=== PATIENT | male | born 1995 | race Caucasian/White ===

== ENCOUNTER 2017-06-03 00:14 | Emergency (ER) | payer BC ==
--- NOTE | 2017-06-03 00:16 | EDPHY ---
H & P HPI/ROS: HPI CHIEF COMPLAINT: Right ear pain x4 days. HISTORY OF PRESENT ILLNESS: This patient very pleasant 21-year-old male he is otherwise healthy no significant medical history he presents emergency room with right ear pain. Patient states he was seen by his primary care doctor at [facility] on for right ear pain this is when this started. He was diagnosed with an ear infection. He was unable to get his antibiotics filled for the past 4 days due to various reasons specifically was busy and working. So is not taking a antibiotics 4 days he now presents emergency room with right ear pain. He denies headache or neck pain. Denies fever. Denies mastoid tenderness on exam. Main complaint 6/10 right ear pain. Past Medical History: Denies significant medical history Past Surgical History: Right hand surgery Social History: Denies daily use of alcohol drugs. Does smoke marijuana frequently. No tobacco. Family History: Noncontributory ROS REVIEW OF SYSTEMS: A comprehensive 10 point review of systems is otherwise negative aside from elements mentioned in the history of present illness. Exam Constitutional triage nursing summary reviewed, vital signs reviewed, awake/ alert. Eyes normal conjunctivae and sclera, EOMI, PERRLA. HENT right TM is erythematous and bulging, TM intact no rupture, left TM normal. No mastoid tenderness on exam. No lymphadenopathy. Oropharynx normal. normal inspection, atraumatic, moist mucus membranes, no epistaxis, neck supple/ no meningismus, no raccoon eyes. Respiratory clear to auscultation bilaterally, normal breath sounds, no respiratory distress, no wheezing. Cardiovascular rate normal, regular rhythm, no murmur, no edema, distal pulses normal. Gastrointestinal soft, non-tender, no rebound, no guarding, normal bowel sounds, no distension, no pulsatile mass. Genitourinary no CVA tenderness. Musculoskeletal no midline vertebral tenderness, full range of motion, no calf swelling, no tenderness of extremities, no meningismus, good pulses, neurovascularly intact. Skin pink, warm, & dry, no rash, skin atraumatic. Neurologic awake, alert and oriented x 3, AAOx3, moves all 4 extremities equally, motor intact, sensory intact, CN II-XII intact, normal cerebellar, normal vision, normal speech. Psychiatric normal mood/affect. Heme/Lymph/Immune no lymphadenopathy. Differential Diagnosis: Includes but is not limited to in a particular order acute otitis media, eustachian tube dysfunction, mastoiditis. Medical Decision Making: Plan for this patient start Keflex here in the emergency room Keflex p.o. 1st dose given, Keflex take-home pack, ibuprofen 800 mg for pain control, [place] for pain control here in emergency room. ENT referral. And additionally return precautions given to this patient returns emergency room if worsening pain fever vomiting Source: Patient Constitutional: Initial Vital Signs Temperature (C) 36.8 C 06/03/17 00:18 Heart Rate 64 06/03/17 00:18 Respiratory Rate 16 06/03/17 00:18 Blood Pressure 140/70 H 06/03/17 00:18 O2 Sat (%) 98 06/03/17 00:18 O2 Delivery Mode Room Air Allergies/Adverse Reactions: No Known Allergies Allergy (Unverified 06/03/17 00:17) Home Medications: Medication Instructions Recorded Cephalexin [Keflex] 500 mg PO Q6H #28 cap 06/03/17 Hydrocodone/APAP 5/325 [[place] 1 - 2 tab PO Q4H PRN #10 tab 06/03/17 5/325] Ibuprofen [Motrin (*)] 800 mg PO Q6-8PRN #10 tab 06/03/17 Departure - Departure Disposition: Home, Routine, Self-Care Clinical Impression: Otitis media Qualifiers: Otitis media type: suppurative Chronicity: acute Laterality: right Recurrence: not specified as recurrent Spontaneous tympanic membrane rupture: without spontaneous rupture Qualified Code(s): H66.001 - Acute suppurative otitis media without spontaneous rupture of ear drum, right ear Condition: Good Instructions: Otitis Media (ED) Additional Instructions: 1.Return emergency room if he develops worsening pain questions or concerns. 2. Please follow up with ENT. Call their for follow-up appointment. 3. Take ibuprofen for mild pain. 4. [place] for severe pain. 5. Antibiotics as prescribed. Referrals: NONE *PRIMARY CARE P,. [Primary Care Provider] - As per Instructions Prescriptions: Cephalexin [Keflex] 500 mg PO Q6H #28 cap Hydrocodone/APAP 5/325 [[place] 5/325] 1 - 2 tab PO Q4H PRN #10 tab PRN Reason: Pain, Moderate Ibuprofen [Motrin (*)] 800 mg PO Q6-8PRN #10 tab
[2017-06-03 00:20] VITALS: BP 140/70; PULSE 64; RESP 16; TEMP 98.2; O2SAT 98
[2017-06-03] MEDS ORDERED: HYDROCODONE/APAP 10/325 TAB PO ONE (00:26)
[2017-06-03] MEDS ORDERED: CEPHALEXIN 500 MG CAP PO ONE (00:26)
[2017-06-03] MEDS ORDERED: CEPHALEXIN 500MG PREPACK#4 BTL TAKEHOME ONE (00:26)
[2017-06-03] MEDS ORDERED: IBUPROFEN 800 MG TAB PO ONE (00:26)
[2017-06-03] MEDS ORDERED: HYDROCODONE/APAP 5/325 TAB ONE (00:34)
[2017-06-03] MEDS ORDERED: HYDROCODONE/APAP 5/325 TAB PO ONE (00:35)
== END 2017-06-03 01:12 | disposition home or self-care (01) ==
DX: H66.001 Acute suppurative otitis media without spontaneous rupture of ear drum, right ear (principal)